=== PATIENT | male | born 1950 | race Caucasian/White ===

== ENCOUNTER 2016-06-26 07:06 | Day surgery (SDC) | payer OTHER ==
[~2016-06-26] VITALS: Ht 175.3 cm; Wt 81.0 kg
[~2016-06-26 07:06] MED LIST: BISM262T15 PO; IBUP200C PO; LEVO112T4 PO; LORA10CA PO; MELO-259 PO; MG T1TAB2 PO; OMEP40CA36 PO; RANI300T4 PO; Sodium Chloride LOK Flush 10 mL Syringe IV PRN; fentaNYL-PF 50 mCg/mL 2 mL Inj IVPUSH PRN
[2016-06-26 07:38] VITALS: BP 128/83; PULSE 66; RESP 16; O2SAT 96
[2016-06-26] MEDS ORDERED: 0.9% Sodium Chloride 1,000 ML IV ONE (07:42)
[2016-06-26] MEDS ORDERED: 0.9% Sodium Chloride 1,000 ML ONE (07:44)
[2016-06-26 08:10] VITALS: BP 129/81; PULSE 61; RESP 14; O2SAT 92
[2016-06-26 08:23] VITALS: BP 136/83; PULSE 70; RESP 12; O2SAT 95
--- NOTE | 2016-06-26 08:37 | ENDO ---
[address] [address] ENDOSCOPY PROCEDURE PATIENT: LALY YODER : 1950 MR#: [id number] ADMIT: 06/26/2016 JOB ID: [id number] DATE: 06/26/2016 TYPE OF OPERATION: Esophagogastroduodenoscopy with biopsy. PREOPERATIVE DIAGNOSIS(ES): Epigastric pain. POSTOPERATIVE DIAGNOSIS(ES): Mild nonerosive gastritis. ANESTHESIA: 1. Fentanyl 100 mcg. 2. Versed 5 mg IV administered. COMPLICATIONS: None. BLOOD LOSS: Minimal. DESCRIPTION OF PROCEDURE: After the risks and benefits were explained to the patient, informed consent was obtained. After anesthesia administered, upper endoscope was inserted into mouth intubating through the esophagus, stomach, second portion of duodenum. Mucosa carefully examined. After procedure was done, the scope was withdrawn and the procedure terminated. FINDINGS: Upon inspection of the esophagus, the esophagus is normal without masses, ulcers or lesions. Z-line located 40 cm from incisors. Upon entering the stomach, there was mild nonerosive gastritis that was seen. No masses, ulcers, lesions were recognized. Retroflexion was normal. Duodenal bulb, first and second portion normal. Biopsies taken in antrum and body of the stomach. IMPRESSIONS: Mild nonerosive gastritis. RECOMMENDATION: 1. Await pathology results. 2. Followup in GI Clinic as needed.
--- NOTE | 2016-06-29 11:27 | PATH ---
SURGICAL PATHOLOGY Attending Physician:Sam Morrison MD CASE STATUS: Signed Out PATIENT NAME: LALY YODER PID: [id number] : 1950 DATE COLLECTED:06/26/2016 16:30 SPECIMEN: 1: Stomach, Antrum, Biopsy 2: Gastric, Biopsy CLINICAL HISTORY: 1: ANTRUM 2: GASTRIC BODY FINAL DIAGNOSIS: 1.ANTRUM BIOPSY: DIFFUSE MILD CHRONIC GASTRITIS INVOLVING ANTRAL MUCOSA. Negative for evidence of Helicobacter. Negative for intestinal metaplasia. Negative for dysplasia and malignancy. 2.GASTRIC BODY BIOPSY: MILD CHRONIC GASTRTITIS INVOLVING FUNDIC MUCOSA. Negative for evidence of Helicobacter. Negative for intestinal metaplasia. Negative for dysplasia and malignancy. ICD10 code K29.70 GROSS DESCRIPTION: The specimen is received in two formalin filled containers labeled with the patient's name. 1). The specimen is sublabeled "antrum" and consists of 2 portions of tissue which aggregate to 0.4 x 0.4 x 0.2 CM. The specimen is entirely submitted in cassette 1A. 2). The specimen is sublabeled "gastric body" and consists of 3 portions of tissue which aggregate to 0.3 x 0.3 x 0.2 CM. The specimen is entirely submitted in cassette 2A. 06/26/2016 [facility] MICRO DESCRIPTION: See diagnosis. ICD-9 CODES: CPT CODES: 1: 08009 2: 22125 Electronically Signed Out Ajay Klein MD [facility] Pathology [facility] [place] [address] Technical component performed at [facility], [address] [place] [address] Ave[address], [place], [address]
== END 2016-06-26 23:59 | disposition home or self-care (01) ==
LOC: END 07:06
PROVIDERS: ATTEND Internal Medicine Gastroenterology
DX: K29.50 Unspecified chronic gastritis without bleeding (principal); Z86.19 Personal history of other infectious and parasitic diseases
CPT/HCPCS: 43239; G0500; J2250; J3010; J7030

== ENCOUNTER → 2017-01-19 | Day surgery (SDC) | payer MEDICARE ==
[~2017-01-19] VITALS: Ht 175.3 cm; Wt 85.0 kg
[~2017-01-19] MED LIST changes: +0.9% Sodium Chloride 1,000 ML IV SCH; -BISM262T15 PO; +CREST10T PO; +DICL100G8 TOPICAL; -IBUP200C PO; +KLO5T PO; -MG T1TAB2 PO; +OMEP20TA24 PO; -OMEP40CA36 PO; -RANI300T4 PO; +[UNRECOGNIZED DRUG - CODE] TP
[2017-01-19 12:48] VITALS: BP 115/64; PULSE 56; RESP 16; O2SAT 99
[2017-01-19 13:54] VITALS: BP 113/73; PULSE 60; RESP 16; O2SAT 98
[2017-01-19 14:04] VITALS: BP 126/73; PULSE 55; RESP 16; O2SAT 99
[2017-01-19 14:15] VITALS: BP 118/69; PULSE 56; RESP 16; O2SAT 96
--- NOTE | 2017-01-19 16:21 | ENDO ---
[address] [address] ENDOSCOPY PROCEDURE PATIENT: LALY YODER : 1950 MR#: [id number] ADMIT: 01/19/2017 JOB ID: [id number] DATE OF SERVICE: 01/19/2017 TYPE OF OPERATION: Colonoscopy. PREOPERATIVE DIAGNOSIS(ES): Colorectal cancer screening. POSTOPERATIVE DIAGNOSIS(ES): Small internal hemorrhoids. ANESTHESIA: Fentanyl 75 mcg and Versed 4 mg IV administered. COMPLICATIONS: None. BLOOD LOSS: Minimal. DESCRIPTION OF PROCEDURE: After risks and benefits explained to the patient, informed consent was obtained. After anesthesia administered, colonoscope was inserted from the rectum to the cecum. Mucosa carefully examined. Prep of the patient was excellent. After procedure was done, the scope withdrawn and procedure terminated. FINDINGS: Upon inspection of the anus, no masses, hemorrhoids, ulcers, or fissures that were seen. Throughout the entire examination, there were no polyps, masses, or lesions. Retroflexion showed small internal hemorrhoids. IMPRESSION: Small internal hemorrhoids. RECOMMENDATION: 1. Stool softeners. 2. Repeat colonoscopy in 10 years for colorectal cancer screening.
== END | disposition home or self-care (01) ==
LOC: END 00:40
PROVIDERS: ATTEND Internal Medicine Gastroenterology
PROC: 0DJD8ZZ Inspection of Lower Intestinal Tract, Via Natural or Artificial Opening Endoscopic (ICD-10-PCS; principal; 2017-01-19 13:00)
DX: Z12.11 Encounter for screening for malignant neoplasm of colon (principal); K64.8 Other hemorrhoids
CPT/HCPCS: G0121; G0500; J2250; J3010; J7030